=== PATIENT | female | born 1945 | race Caucasian/White ===

== ENCOUNTER 2016-11-28 11:29 | Outpatient (CLI) | payer MEDICARE, OTHER ==
[2014-06-05 09:50] VITALS: BP 107/57
[2016-11-28 11:45] LABS: BASOPHILS % 0.4 (0.0-1.5); EOSINOPHILS % 1.8 % (0.0-6.8); MEAN CORPUSCULAR HEMOGLOBIN 31.5 pg (28.0-34.0); MEAN CORPUSCULAR VOLUME 92.5 fl (80.0-100.0); MONOCYTES % 3.2 % (0.0-11.0); NEUTROPHILS # 4.3 # k/uL (1.4-7.7)
[2016-11-28 12:17] LABS: eGFR (African) > 60; eGFR (Non-African) > 60
--- NOTE | 2016-11-28 15:32 | Diagnostic Imaging Report ---
GERALDO SPENCER [facility] [address] [facility] [address] [address] Report Submission Date: Nov 28, 2016 1:09:36 PM CDT Patient Study Name: JAMAAL ONTIVEROS Date: Nov 28, 2016 11:44:43 AM CDT Modality Type: CR Gender: F Description: CHEST : 49 Institution: [facility] Physician: GERALDO SPENCER Chest - two views Clinical history: Chronic cough. Shortness of breath. Findings examination of the chest in PA and lateral views with comparison to examination of 06/05/2014 demonstrates lungs to be hyperinflated with flattening of the hemidiaphragms consistent with changes of emphysema. The cardiovascular and mediastinal silhouettes are stable. The aorta is atherosclerotic. Bony thorax is intact. Impression: 1. No significant change. 2. Emphysema. Electronically signed on Nov 28, 2016 1:09:36 PM CDT by: Blaise KEENAN
== END 2016-11-28 11:30 ==
LOC: RAD 11:29
PROVIDERS: ATTEND Family Medicine
DX: Z51.81 Encounter for therapeutic drug level monitoring (principal); F17.210 Nicotine dependence, cigarettes, uncomplicated; J43.1 Panlobular emphysema; Z79.899 Other long term (current) drug therapy
CPT/HCPCS: 36415; 71020; 80053; 85025

== ENCOUNTER 2016-12-05 16:02 | Outpatient (CLI) | payer MEDICARE, OTHER ==
[2014-06-05 09:50] VITALS: BP 107/57
== END 2016-12-05 16:03 ==
LOC: LABRHC 16:02
PROVIDERS: ATTEND Family Medicine
DX: Z01.419 Encounter for gynecological examination (general) (routine) without abnormal findings (principal)
CPT/HCPCS: 88148; G0143

== ENCOUNTER 2019-01-16 14:31 | Emergency (ER) | payer MEDICARE, OTHER ==
[2014-06-05 09:50] VITALS: BP 107/57
[2019-01-16] MEDS ORDERED: methylPREDNISolone SOD SUCC 125 MG/2 ML VIAL ONE (14:53)
[2019-01-25 18:37] LABS: APPEARANCE,URINE CLEAR (CLEAR); COLOR,URINE YELLOW (YELLOW); OCCULT BLOOD,URINE NEGATIVE (NEGATIVE)
[2019-01-25 18:38] LABS: eGFR (Non-African) > 60
[2019-01-25 18:39] LABS: BASOPHILS % 0.6 % (0.0-1.5); NEUTROPHILS # 9.3 # k/uL (1.4-7.7)
== END 2019-01-16 16:34 ==
LOC: ED 14:31
DX: R07.81 Pleurodynia (principal)
CPT/HCPCS: 36415; 71020; 80053; 81002; 85025; 96372; 99283; 99284; J2930